=== PATIENT | male | born 1945 | race Two or more races ===

== ENCOUNTER 2025-05-27 20:25 | Inpatient (IN) | payer MEDICARE, MEDICAID ==
[~2025-05-27] VITALS: Ht 165.1 cm; Wt 61.5 kg
[2025-05-27 21:03] LABS: PLATELET COUNT (AUTO) 193 K/uL (152-348); RED BLOOD CELL COUNT(AUTO) 4.36 MIL/uL (4.06-5.63); RED CELL DISTRIBUTION WIDTH 17.2 % (12.1-16.2); WHITE BLOOD COUNT (AUTO) 16.6 K/uL (3.6-10.2)
[2025-05-27 21:12] LABS: CREATININE 2.5 mg/dL (0.6-1.3); SODIUM SERUM 137 mmol/L (136-145); UREA NITROGEN, BLOOD 17 mg/dL (7-18)
[2025-05-27 21:17] LABS: ASPARTATE AMINOTRANSFERASE 37 U/L (15-37); TOTAL PROTEIN, SERUM 6.6 g/dL (6.4-8.2)
[2025-05-27] MEDS ORDERED: LOSA25TA27 PO (22:18)
[2025-05-27] MEDS ORDERED: POLY119P3 PO (22:18)
[2025-05-27] MEDS ORDERED: OXYC-128 PO (22:18)
[2025-05-27] MEDS ORDERED: INSU100V7 SQ (22:18)
[2025-05-27] MEDS ORDERED: ISOS60TA72 PO (22:18)
[2025-05-27] MEDS ORDERED: INSU100C SUBCUT (22:18)
[2025-05-27] MEDS ORDERED: INSU100C SQ (22:18)
[2025-05-27] MEDS ORDERED: RANO500T6 PO (22:18)
[2025-05-27] MEDS ORDERED: TICA90TA PO (22:18)
[2025-05-27] MEDS ORDERED: PREG50CA PO (22:18)
[2025-05-27] MEDS ORDERED: CALC667T6 PO (22:18)
[2025-05-27] MEDS ORDERED: DOCU100C36 PO (22:18)
[2025-05-27] MEDS ORDERED: ACET-3117 PO (22:18)
[2025-05-27] MEDS ORDERED: MELA5TAB PO (22:18)
[2025-05-27] MEDS ORDERED: APIX2.5T PO (22:18)
[2025-05-27] MEDS ORDERED: TRAZ-182 PO (22:18)
[2025-05-27] MEDS ORDERED: SENN8.6T19 PO (22:18)
[2025-05-27] MEDS ORDERED: ATOR10TA PO (22:18)
[2025-05-27] MEDS ORDERED: CRAN450T9 PO (22:18)
[2025-05-27] MEDS ORDERED: ASPI81TA31 PO (22:18)
[2025-05-27] MEDS ORDERED: TAMS-3 PO (22:18)
[2025-05-27] MEDS ORDERED: FOLI0.8T23 PO (22:18)
[2025-05-27] MEDS ORDERED: METO25TA6 PO (22:18)
[2025-05-28] MEDS ORDERED: CEFTRIAXONE /D5W 50ML IVPB **ER PYXIS IV ONE (01:09)
[2025-05-28 01:20] VITALS: BP 104/61
[2025-05-28] MEDS ORDERED: ACETAMINOPHEN 325 MG TABLET PO PRN (01:30)
[2025-05-28] MEDS ORDERED: ONDANSETRON 4 MG/2 ML VIAL IV PRN (01:30)
[2025-05-28] MEDS ORDERED: MORPHINE SULFATE 2 MG/1 ML DISP.SYRIN IV PRN (01:30)
[2025-05-28 02:30] VITALS: BP 121/62; TEMP 98.3; O2SAT 99
[2025-05-28] MEDS ORDERED: METRONIDAZOLE 500 MG/NS 100ML 100 ML IV ONE (05:07)
[2025-05-28] MEDS: METRONIDAZOLE 500 MG/NS 100ML 500 MG in PREMIXED 1 EACH IV SCH (05:19)
[2025-05-28 06:33] VITALS: BP 112/56; TEMP 97.9; O2SAT 100
[2025-05-28 07:10] LABS: PLATELET COUNT (AUTO) 200 K/uL (152-348); RED BLOOD CELL COUNT(AUTO) 3.95 MIL/uL (4.06-5.63); RED CELL DISTRIBUTION WIDTH 17.4 % (12.1-16.2); WHITE BLOOD COUNT (AUTO) 13.1 K/uL (3.6-10.2)
[2025-05-28 07:33] LABS: ASPARTATE AMINOTRANSFERASE 32 U/L (15-37); CREATININE 3.0 mg/dL (0.6-1.3); SODIUM SERUM 138 mmol/L (136-145); TOTAL PROTEIN, SERUM 6.3 g/dL (6.4-8.2); UREA NITROGEN, BLOOD 23 mg/dL (7-18)
[2025-05-28] MEDS: PANTOPRAZOLE SODIUM 40 MG VIAL IV SCH (08:17)
[2025-05-28] MEDS ORDERED: ACET325T53 PO (09:57)
[2025-05-28] MEDS ORDERED: POLY17PO4 PO (09:57)
[2025-05-28] MEDS ORDERED: ISOS30TA86 PO (09:57)
[2025-05-28 11:05] VITALS: BP 111/60; TEMP 98.4; O2SAT 97
[2025-05-28] MEDS: IV D5 1/2 NS 1000 ML 1,000 ML IV PRN (15:39)
[2025-05-28 15:45] VITALS: BP 126/66; TEMP 98.3; O2SAT 94
[2025-05-28 16:30] LABS: *BILIRUBIN,URIN NEGATIVE (NEGATIVE); *BLOOD, URINE NEGATIVE (NEGATIVE); *CLARITY,URINE CLEAR (CLEAR); *COLOR,URINE YELLOW (YELLOW); *KETONES,URINE TRACE (NEGATIVE); *PROTEIN,URINE 3+ (NEGATIVE); *UROBILINOGEN,URINE 0.2 E.U./dl (NORMAL); LEUKOCYTE ESTERASE ,URINE NEGATIVE (NEGATIVE); NITRITE, URINE NEGATIVE (NEGATIVE); UGLUCOSE TRACE (NEGATIVE)
[2025-05-28 16:48] LABS: SQUAMOUS EPITHELIAL CELL,UR FEW /HPF (NONE SEEN)
[2025-05-28 19:27] VITALS: BP 125/66; TEMP 98; O2SAT 97
[2025-05-28] MEDS ORDERED: CEFTRIAXONE 500 MG in IV DEXTROSE 5% 50 ML IV SCH (21:00)
[2025-05-29 05:50] VITALS: BP 133/69; TEMP 97.9; O2SAT 96
[2025-05-29 07:09] LABS: PLATELET COUNT (AUTO) 222 K/uL (152-348); RED BLOOD CELL COUNT(AUTO) 4.32 MIL/uL (4.06-5.63); RED CELL DISTRIBUTION WIDTH 17.6 % (12.1-16.2); WHITE BLOOD COUNT (AUTO) 10.4 K/uL (3.6-10.2)
[2025-05-29 07:42] LABS: CREATININE 3.7 mg/dL (0.6-1.3); SODIUM SERUM 139 mmol/L (136-145); UREA NITROGEN, BLOOD 30 mg/dL (7-18)
[2025-05-29 10:55] VITALS: BP 145/75; TEMP 97.7; O2SAT 94
[2025-05-29 15:34] VITALS: BP 136/74; TEMP 97.8; O2SAT 97
[2025-05-29 19:27] VITALS: BP 93/60; TEMP 97.4; O2SAT 97
[2025-05-30 05:46] VITALS: BP 121/73; TEMP 98.2; O2SAT 98
[2025-05-30 07:04] LABS: PLATELET COUNT (AUTO) 197 K/uL (152-348); RED BLOOD CELL COUNT(AUTO) 4.39 MIL/uL (4.06-5.63); RED CELL DISTRIBUTION WIDTH 17.3 % (12.1-16.2); WHITE BLOOD COUNT (AUTO) 10.1 K/uL (3.6-10.2)
[2025-05-30 07:22] LABS: CREATININE 3.5 mg/dL (0.6-1.3); SODIUM SERUM 139 mmol/L (136-145); UREA NITROGEN, BLOOD 29 mg/dL (7-18)
[2025-05-30 11:09] VITALS: BP 147/71; TEMP 97.4; O2SAT 98
[2025-05-30 15:35] VITALS: BP 152/106; TEMP 97.9; O2SAT 96
[2025-05-30 16:03] VITALS: O2SAT 96
[2025-05-30] MEDS: TRAZODONE 50 MG TABLET PO SCH (20:19)
[2025-05-30] MEDS: ATORVASTATIN 10 MG TABLET PO SCH (20:19)
[2025-05-30] MEDS ORDERED: ACETAMINOPHEN 325 MG TABLET-SA PATIENTS-PAIN ONLY PO SCH (21:00)
[2025-05-30 22:06] VITALS: BP 131/71; TEMP 98.3; O2SAT 96
[2025-05-31 05:56] LABS: PLATELET COUNT (AUTO) 211 K/uL (152-348); RED BLOOD CELL COUNT(AUTO) 4.24 MIL/uL (4.06-5.63); RED CELL DISTRIBUTION WIDTH 17.7 % (12.1-16.2); WHITE BLOOD COUNT (AUTO) 9.7 K/uL (3.6-10.2)
[2025-05-31 06:09] LABS: CREATININE 3.9 mg/dL (0.6-1.3); SODIUM SERUM 137 mmol/L (136-145); UREA NITROGEN, BLOOD 35 mg/dL (7-18)
[2025-05-31 06:18] VITALS: BP 119/73; TEMP 98.2; O2SAT 100
[2025-05-31] MEDS: TAMSULOSIN HCL 0.4 MG CAP.SR.24H PO SCH (08:22)
[2025-05-31] MEDS: ASPIRIN 81 MG TAB.CHEW PO SCH (08:22)
[2025-05-31] MEDS: RANOLAZINE 500 MG TAB.ER.12H PO SCH (08:22)
[2025-05-31] MEDS: SENNOSIDES 1 TABLET PO SCH (08:22)
[2025-05-31] MEDS: TICAGRELOR 90 MG TABLET PO SCH (08:23)
[2025-05-31] MEDS: PREGABALIN 50 MG CAPSULE PO SCH (08:23)
[2025-05-31] MEDS: DOCUSATE SODIUM 100 MG CAPSULE PO SCH (08:26)
[2025-05-31] MEDS: PANTOPRAZOLE SODIUM 40 MG TABLET.DR PO SCH (08:26)
[2025-05-31] MEDS: LOSARTAN POTASSIUM 25 MG TABLET PO SCH (08:30)
[2025-05-31] MEDS: ISOSORBIDE MONONITRATE 30 MG TAB.SR.24H PO SCH (08:31)
[2025-05-31] MEDS: METOPROLOL TARTRATE 25 MG TABLET PO SCH (08:31)
[2025-05-31 11:33] VITALS: BP 99/55; TEMP 98.1; O2SAT 100
[2025-05-31 16:00] VITALS: BP 115/65; TEMP 98; O2SAT 100
[2025-05-31 19:31] VITALS: BP 98/56; TEMP 97.9; O2SAT 97
[2025-06-01 06:21] LABS: PLATELET COUNT (AUTO) 156 K/uL (152-348); RED BLOOD CELL COUNT(AUTO) 4.35 MIL/uL (4.06-5.63); RED CELL DISTRIBUTION WIDTH 17.6 % (12.1-16.2); WHITE BLOOD COUNT (AUTO) 9.4 K/uL (3.6-10.2)
[2025-06-01 06:34] VITALS: BP 86/42; TEMP 98.5; O2SAT 98
[2025-06-01 06:37] LABS: CREATININE 3.8 mg/dL (0.6-1.3); SODIUM SERUM 134 mmol/L (136-145); UREA NITROGEN, BLOOD 35 mg/dL (7-18)
[2025-06-01 11:35] VITALS: BP 90/53; TEMP 97.7; O2SAT 97
[2025-06-01] MEDS: METRONIDAZOLE 500 MG TABLET PO SCH (14:37)
[2025-06-01 15:41] VITALS: BP 114/73; TEMP 98; O2SAT 95
[2025-06-01] MEDS: NEPRO (VANILLA) 237 ML CAN PO SCH (16:13)
[2025-06-01 19:32] VITALS: BP 96/55; TEMP 98; O2SAT 96
[2025-06-01] MEDS: TAMSULOSIN HCL 0.4 MG CAP.SR.24H PO SCH (20:35)
[2025-06-02 00:07] LABS: HEPATITIS B SURFACE AG Negative (Negative)
[2025-06-02 06:30] VITALS: BP 111/60; TEMP 97.9; O2SAT 94
[2025-06-02 06:43] LABS: PLATELET COUNT (AUTO) 185 K/uL (152-348); RED BLOOD CELL COUNT(AUTO) 4.13 MIL/uL (4.06-5.63); RED CELL DISTRIBUTION WIDTH 17.0 % (12.1-16.2); WHITE BLOOD COUNT (AUTO) 11.1 K/uL (3.6-10.2)
[2025-06-02 06:56] LABS: CREATININE 4.2 mg/dL (0.6-1.3); SODIUM SERUM 130 mmol/L (136-145); UREA NITROGEN, BLOOD 45 mg/dL (7-18)
[2025-06-02 11:33] VITALS: BP 118/70; TEMP 98.4; O2SAT 97
[2025-06-02 15:44] VITALS: BP 124/67; TEMP 97.7; O2SAT 97
[2025-06-02 19:00] VITALS: BP 101/57; TEMP 98.5; O2SAT 94
[2025-06-03 06:39] VITALS: BP 96/58; TEMP 98.2; O2SAT 95
[2025-06-03 06:48] LABS: PLATELET COUNT (AUTO) 165 K/uL (152-348); RED BLOOD CELL COUNT(AUTO) 4.20 MIL/uL (4.06-5.63); RED CELL DISTRIBUTION WIDTH 17.3 % (12.1-16.2); WHITE BLOOD COUNT (AUTO) 11.4 K/uL (3.6-10.2)
[2025-06-03 07:08] LABS: CREATININE 3.6 mg/dL (0.6-1.3); SODIUM SERUM 130 mmol/L (136-145); UREA NITROGEN, BLOOD 38 mg/dL (7-18)
[2025-06-03 11:45] VITALS: BP 93/52; TEMP 98.4; O2SAT 94
[2025-06-03 16:20] VITALS: BP 99/57; TEMP 98.2; O2SAT 94
[2025-06-03 19:42] VITALS: BP 103/57; TEMP 99.4; O2SAT 94
[2025-06-04 12:00] VITALS: BP 100/52; TEMP 98.4; O2SAT 97
[2025-06-04 16:07] VITALS: BP 98/52; TEMP 98.6; O2SAT 94
[2025-06-04 19:20] VITALS: BP 131/65; TEMP 99.8; O2SAT 93
[2025-06-05 06:27] VITALS: BP 106/60; TEMP 98.3; O2SAT 93
[2025-06-05 06:42] LABS: PLATELET COUNT (AUTO) 157 K/uL (152-348); RED BLOOD CELL COUNT(AUTO) 3.90 MIL/uL (4.06-5.63); RED CELL DISTRIBUTION WIDTH 17.8 % (12.1-16.2); WHITE BLOOD COUNT (AUTO) 14.5 K/uL (3.6-10.2)
[2025-06-05 07:03] LABS: CREATININE 3.7 mg/dL (0.6-1.3); SODIUM SERUM 132 mmol/L (136-145); UREA NITROGEN, BLOOD 46 mg/dL (7-18)
[2025-06-05] MEDS ORDERED: DEXTROSE 50% 50 ML DISP.SYRIN IV PRN (07:45)
[2025-06-05 07:51] VITALS: BP 121/66; TEMP 99.1; O2SAT 94
[2025-06-05] MEDS: INSULIN REGULAR, HUMAN 1000 UNIT/10 ML VIAL SQ PRN (07:51)
[2025-06-05] MEDS: BLOOD SUGAR DIAGNOSTIC 1 EACH STRIP VI SCH (07:51)
[2025-06-05 16:06] VITALS: BP 122/67; TEMP 98; O2SAT 97
[2025-06-05 19:20] VITALS: BP 96/55; TEMP 99.1; O2SAT 94
[2025-06-06 06:07] VITALS: BP 138/77; TEMP 97.8; O2SAT 95
[2025-06-06 06:58] LABS: PLATELET COUNT (AUTO) 206 K/uL (152-348); RED BLOOD CELL COUNT(AUTO) 4.02 MIL/uL (4.06-5.63); RED CELL DISTRIBUTION WIDTH 17.5 % (12.1-16.2); WHITE BLOOD COUNT (AUTO) 13.3 K/uL (3.6-10.2)
[2025-06-06 07:13] LABS: CREATININE 4.1 mg/dL (0.6-1.3); SODIUM SERUM 134 mmol/L (136-145); UREA NITROGEN, BLOOD 57 mg/dL (7-18)
[2025-06-06] MEDS: ASPIRIN 81 MG TAB.CHEW PO SCH (09:47)
[2025-06-06] MEDS: TICAGRELOR 90 MG TABLET PO SCH (09:58)
[2025-06-06 11:05] VITALS: BP 114/61; TEMP 97.6; O2SAT 95
[2025-06-06 15:52] VITALS: BP 110/63; TEMP 98.4; O2SAT 95
[2025-06-06] MEDS ORDERED: ALBUMIN HUMAN 25% 50 ML IV PRN (16:30)
[2025-06-06 20:10] VITALS: BP 119/61; TEMP 98.3; O2SAT 97
[2025-06-07 06:16] VITALS: BP 108/69; TEMP 98.2; O2SAT 97
[2025-06-07 07:27] LABS: CREATININE 3.3 mg/dL (0.6-1.3); SODIUM SERUM 134 mmol/L (136-145); UREA NITROGEN, BLOOD 45 mg/dL (7-18)
[2025-06-07] MEDS: MIRALAX 17 GM POWD.PACK PO PRN (08:44)
[2025-06-07 11:34] VITALS: BP 103/55; TEMP 98.2; O2SAT 95
[2025-06-07] MEDS: ASPIRIN 81 MG TAB.CHEW GT SCH (12:17)
[2025-06-07 16:00] VITALS: BP 113/61; TEMP 98.9; O2SAT 96
[2025-06-07] MEDS ORDERED: LACTULOSE 20 G/30 ML LIQUID UDC PO PRN (19:00)
[2025-06-07 19:42] VITALS: BP 106/63; TEMP 98.4; O2SAT 95
[2025-06-08 05:54] VITALS: BP 124/82; TEMP 97.9; O2SAT 97
[2025-06-08 07:06] LABS: PLATELET COUNT (AUTO) 224 K/uL (152-348); RED BLOOD CELL COUNT(AUTO) 3.94 MIL/uL (4.06-5.63); RED CELL DISTRIBUTION WIDTH 17.7 % (12.1-16.2); WHITE BLOOD COUNT (AUTO) 12.3 K/uL (3.6-10.2)
[2025-06-08 07:20] LABS: CREATININE 4.0 mg/dL (0.6-1.3); SODIUM SERUM 136 mmol/L (136-145); UREA NITROGEN, BLOOD 65 mg/dL (7-18)
[2025-06-08] MEDS: SODIUM ZIRCONIUM CYCLOSILICATE 10 GM POWD.PACK PO ONE (11:26)
[2025-06-08 12:00] VITALS: BP 93/55; TEMP 98.3; O2SAT 95
== END 2025-06-08 14:50 | disposition short-term general hospital (02) | DRG 862 ==
LOC: ER 21:15 → MEDSURG3 05-28 01:10
PROVIDERS: ADMIT Surgery Vascular Surgery; ATTEND Student in an Organized Health Care Education/Training Program
PROC: 5A1D70Z Performance of Urinary Filtration, Intermittent, Less than 6 Hours Per Day (ICD-10-PCS; principal; 2025-05-29)
DX: K68.11 Postprocedural retroperitoneal abscess (principal); N18.6 End stage renal disease; K82.A2 Perforation of gallbladder in cholecystitis; I12.0 Hypertensive chronic kidney disease with stage 5 chronic kidney disease or end stage renal disease; E44.0 Moderate protein-calorie malnutrition; K81.0 Acute cholecystitis; T81.43XA Infection following a procedure, organ and space surgical site, initial encounter; I48.0 Paroxysmal atrial fibrillation; I25.10 Atherosclerotic heart disease of native coronary artery without angina pectoris; Z95.5 Presence of coronary angioplasty implant and graft; E87.5 Hyperkalemia; Z79.4 Long term (current) use of insulin; Z79.899 Other long term (current) drug therapy; E78.5 Hyperlipidemia, unspecified; E11.42 Type 2 diabetes mellitus with diabetic polyneuropathy; E11.22 Type 2 diabetes mellitus with diabetic chronic kidney disease; K21.9 Gastro-esophageal reflux disease without esophagitis; M48.061 Spinal stenosis, lumbar region without neurogenic claudication; M50.322 Other cervical disc degeneration at C5-C6 level; M51.369 Other intervertebral disc degeneration, lumbar region without mention of lumbar back pain or lower extremity pain; D63.1 Anemia in chronic kidney disease; F32.A Depression, unspecified; E87.70 Fluid overload, unspecified; Z79.82 Long term (current) use of aspirin
CPT/HCPCS: 36415; 70450; 71045; 72125; 72131; 83605; 83690; 83735; 84100; 84484; 85025; 85610; 85730; 87040; 87340; 93005; 93307; A4663; A6209; G0378; J0696; J1815; J2405; J2470; J3490; J7040; P9047